=== PATIENT | male | born 1995 | race African-American/Black ===

== ENCOUNTER 2021-04-25 04:23 | Emergency (ER) | payer SELFPAY ==
[2021-04-25 04:27] VITALS: BP 131/81; PULSE 87; RESP 20; TEMP 37; O2SAT 99; BMI 23.0
--- NOTE | 2021-04-25 04:44 | ED.MALEGU ---
HPI - Male Genitourinary General Chief complaint: Urogenital-Male Stated complaint: uro-genital male Time Seen by Provider: 04/25/21 04:28 Source: patient Mode of arrival: ambulatory History of Present Illness HPI Narrative: 25-year-old male presents for penile discharge and discomfort on urination for 2-3 days without associated fever, chills and denies any testicular/scrotal pain. He endorses that he has unprotected sex. Related Data Allergies Allergy/AdvReac Type Severity Reaction Status Date / Time No Known Allergies Allergy Unverified 03/09/20 18:59 [No Known Allergies*] Review of Systems Review of Systems: Pertinent positives and negatives as stated in HPI 10 point review of systems is otherwise negative. PMFSH Past Medical History Source: nursing notes reviewed Social History Social History Advance Directives: No Advance Directives Information Provided: Yes Physical Exam Vital Signs: Vital Signs: Last Vital Signs Temp 98.6 F 04/25/21 04:27 Pulse 87 04/25/21 04:27 Resp 20 04/25/21 04:27 BP 131/81 04/25/21 04:27 Pulse Ox 99 04/25/21 04:27 Body Mass Index 23.0 VITAL SIGNS: Reviewed. GENERAL: Well developed, well nourished, in no acute distress. HEAD: Normocephalic/atraumatic EYES: PERRLA, EOMI OROPHARYNX: no oral lesions noted, posterior pharynx clear LUNGS: Normal breath sounds. SpO2<99> CARDIOVASCULAR: Regular rate and rhythm without noted murmurs ABDOMEN: Soft, non-tender, non-distended with bowel sounds. NEUROLOGIC: Alert and oriented x 4. Course Course Course Narrative: 25-year-old male with history and clinical presentation consistent with STI and no evidence to suggest epididymitis. Patient will be empirically treated and samples will be sent to the lab. Patient was encouraged to follow up his primary care provider to follow-up on results. Discharge Plan Discharge Clinical Impression: Dysuria, Penile discharge Patient Disposition: Home, Self-Care Instructions: Dysuria (ED) Additional Instructions: 1. Refrain from having sexual intercourse for 1 week. Inform all sexual partners of your diagnosis. 2. Recommend using condoms for sexual intercourse.
[2021-04-25] MEDS: Azithromycin 500 MG TABLET 1000 MG PO (04:55)
[2021-04-25] MEDS: cefTRIAXone sodium 500 MG, Lidocaine HCl 1 % MPF 1 ML IM (04:55)
[2021-04-25 04:57] VITALS: BP 114/62; PULSE 74; RESP 15; TEMP 36.9; O2SAT 98
[2021-04-25 10:10] LABS: CT PCR NOT DETECTED (Not Detect.); NG PCR DETECTED (Not Detect.)
== END 2021-04-25 04:59 | disposition home or self-care (01) ==
PROVIDERS: Emergency Provider Student in an Organized Health Care Education/Training Program
DX: R30.0 Dysuria (principal); R36.9 Urethral discharge, unspecified; A54.9 Gonococcal infection, unspecified
CPT/HCPCS: 87491; 87591; 96372; 99284; J0696

== ENCOUNTER 2022-08-24 23:18 | Emergency (ER) | payer SELFPAY ==
[2022-08-24 23:33] VITALS: BP 142/82; PULSE 74; RESP 18; TEMP 37.1; O2SAT 98; BMI 25.1
[2022-08-24 23:44] LABS: IDNOW Serial# 6674DD1D; Strep A Nucleic Acid Positive (Negative)
--- NOTE | 2022-08-24 23:56 | ED.GENADULT ---
[facility] - General Adult General Chief complaint: Upper Respiratory Symptoms Stated complaint: ?Strep throat Time Seen by Provider: 08/24/22 23:55 Source: patient Mode of arrival: ambulatory History of Present Illness HPI narrative: 47-year-old male who presents with sore throat for 3 days but otherwise denies cough/fevers but does have pain on swallowing otherwise denies any shortness of breath, chest pain/palpitations. Related Data Previous Rx's Medication Instructions Recorded amoxicillin 875 mg-potassium 1 tab PO Q12H 10 days #20 tabs 08/25/22 clavulanate 125 mg tablet Allergies Allergy/AdvReac Type Severity Reaction Status Date / Time No Known Allergies Allergy Unverified 03/09/20 18:59 [No Known Allergies*] Review of Systems Review of Systems: Pertinent positives and negatives as stated in [facility] Past Medical History Source: nursing notes reviewed Social History Social History Advance Directives: No Advance Directives Information Provided: No Physical Exam ED Vital Signs: Vital Signs - 24 hr 08/24/22 23:33 Temperature 98.7 F Pulse Rate 74 Respiratory Rate 18 Blood Pressure 142/82 H Pulse Oximetry 98 Oxygen Delivery Method Room Air BMI result Body Mass Index 25.1 VITAL SIGNS: Reviewed. GENERAL: Well developed, well nourished, in no acute distress. HEAD: Normocephalic/atraumatic EYES: PERRLA, EOMI EARS: Ext canals without abnormality, TMs non-bulging and non-erythematous NOSE: Nares patent bilateral OROPHARYNX: no oral lesions noted, posterior pharynx clear but erythematous with noted tonsillar enlargement/erythema/exudates NECK: Supple, + adenopathy LUNGS: Normal breath sounds. No adventitious sounds or accessory muscle use. SpO2<98> CARDIOVASCULAR: Regular rate and rhythm without noted murmurs ABDOMEN: Soft, non-tender, non-distended with bowel sounds. SKIN: Inspection of the skin reveals no rashes NEUROLOGIC: Alert and oriented x 4. Strength and sensation to light touch were grossly intact x 4. Medications Administered Discontinued Medications Generic Name Dose Route Start Last Admin Trade Name Freq PRN Reason Stop Dose Admin Acetaminophen 975 mg 08/24/22 23:55 08/25/22 00:24 Acetaminophen 325 Mg Tablet PO 08/24/22 23:56 975 mg ONCE ONE Administration Amoxicillin/Clavulanate Potassium 875 mg 08/24/22 23:55 08/25/22 00:24 Amoxicillin/Potassium Clav 875 Mg Tablet PO 08/24/22 23:56 875 mg ONCE ONE Administration Ibuprofen 400 mg 08/24/22 23:55 08/25/22 00:24 Ibuprofen 400 Mg Tablet PO 08/24/22 23:56 400 mg ONCE ONE Administration Medical Decision Making Medical Decision Making MDM Narrative: 27-year-old male with history and clinical presentation and after review of all investigations my interpretation is this patient has strep pharyngitis, he will receive combination analgesics and initial antibiotics. He was informed of the diagnosis and discharged home in stable condition. Differential Diagnosis Please see the discussion above Lab Data Please see the discussion above Labs: Lab Results 08/24/22 Range/Units 23:35 S. pyogenes GrpA JENNIFER Positive A (Negative) Discharge Plan Discharge Clinical Impression: Acute streptococcal pharyngitis Patient Disposition: Home, Self-Care Instructions: Strep Throat (ED) Additional Instructions: 1. Complete the entire course of antibiotics as ordered. 2. Recommend [id number] Tylenol/ibuprofen as needed for pain control. May also use Cepacol or Sucrets for relief of throat pain. 3. Continue to drink plenty of water and follow-up with your primary care provider in the next 2-3 days. Return to the ER for any worsening of symptoms. Prescriptions: New amoxicillin-pot clavulanate 875-125 mg tablet 1 tab PO Q12H 10 Days Qty: 20 0RF
[2022-08-25] MEDS: Ibuprofen 400 MG TABLET PO (00:24)
[2022-08-25] MEDS: Amoxicillin/Potassium Clav 875 MG TABLET PO (00:24)
[2022-08-25] MEDS: Acetaminophen 325 MG TABLET 975 MG PO (00:24)
[2022-08-25 01:05] VITALS: PULSE 78; RESP 20; O2SAT 98
== END 2022-08-25 01:31 | disposition home or self-care (01) ==
PROVIDERS: Emergency Provider Student in an Organized Health Care Education/Training Program
DX: J02.0 Streptococcal pharyngitis (principal)
CPT/HCPCS: 36415; 87651; 99284

== ENCOUNTER 2024-10-07 23:21 | Emergency (ER) | payer MEDICAID, SELFPAY ==
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
[2024-10-07 23:23] VITALS: BP 130/85; PULSE 80; RESP 16; TEMP 36.3; O2SAT 98; BMI 25.1
--- NOTE | 2024-10-08 02:13 | PC.NURSE ---
pt laying down in stretcher, covering his face with blanket while attempting to do assessment. pt took a old prescription on 5mg of oxycodone for pain at 11am. cms and pedal pulses present. Awaiting provider.
[2024-10-08 02:15] VITALS: BP 124/82; PULSE 66; RESP 16; TEMP 37.2; O2SAT 98
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
[2024-10-08] MEDS: Ibuprofen 600 MG TABLET PO (02:44)
[2024-10-08 02:46] VITALS: BP 124/82; PULSE 66; RESP 16; TEMP 37.2; O2SAT 98
--- NOTE | 2024-10-08 02:46 | PC.NURSE ---
medicated per mar, reviewed discharge paper work with pt, pt verbalized understanding, no sign of distress, pt able ambulate with steady gait.
== END 2024-10-08 02:47 | disposition home or self-care (01) ==
PROVIDERS: Emergency Provider Emergency Medicine
DX: M25.561 Pain in right knee (principal)
CPT/HCPCS: 73560; 99283; 99284

== ENCOUNTER → 2024-10-07 23:30 | Outpatient (BNV) | payer SELFPAY | PROVIDERS: Visit Provider Radiology Neuroradiology | DX: M25.461 Effusion, right knee (principal) | CPT/HCPCS: 73560 ==